=== PATIENT | female | born 1960 | race Caucasian/White ===

== ENCOUNTER 2016-07-02 16:48 | Emergency (ER) | payer MEDICARE, MEDICAID ==
[2016-07-02] MEDS ORDERED: SODIUM CHLORIDE 0.9% 1000ML 1,000 ML IVS ONE (17:37)
--- NOTE | 2016-07-02 18:41 | ED.PDOC ---
History of Present Illness - General Source: patient, RN notes reviewed, Vital Signs reviewed, family Exam Limitations: no limitations - History of Present Illness Initial Comments: Patient was walking around [employer] when she started to feel shaky and weak. She felt like when her blood sugar drops but she had just eaten lunch so did not think that was what was going on. Her [id number] reports she was sitting down and then had 2 brief syncopal episodes with diaphoresis. First thing patient remembers after syncopal episode was being moved onto stretcher by EMS. That was ~15 minutes after syncopal episode. Now she is feeling better just very fatigued and with a headache. Glucose checked by EMS was 310. Patient did not take her medications today. Timing/Duration: momentarily Severity: moderate Improving Factors: nothing Worsening Factors: nothing Associated Symptoms: diaphoresis, headaches, malaise, syncope, weakness <Caryl Francisco - Last Filed: 07/02/16 19:05> <Leticia Hess - Last Filed: 07/02/16 19:48> - General Chief Complaint: Neuro Symptoms/Deficits Stated Complaint: severe headache Time Seen by Provider: 07/02/16 17:36 - History of Present Illness Allergies/Adverse Reactions: Allergies Butorphanol [From Stadol] Allergy (Verified 05/15/12 11:06) Diazepam [From Valium] Allergy (Verified 05/15/12 11:06) Diphenhydramine [From Benadryl] Allergy (Verified 05/15/12 11:06) Meperidine [From Demerol HCl] Allergy (Verified 05/15/12 11:06) Penicillins Allergy (Verified 05/15/12 11:06) Phenobarbital Allergy (Verified 05/15/12 11:06) Review of Systems - Review of Systems Constitutional: States: diaphoresis, malaise, weakness. Denies: chills, fever EENTM: States: no symptoms reported Respiratory: States: no symptoms reported. Denies: cough, short of breath Cardiology: States: syncope. Denies: chest pain, edema, palpitations Gastrointestinal/Abdominal: States: no symptoms reported. Denies: abdominal pain, nausea Musculoskeletal: States: no symptoms reported. Denies: back pain, neck pain Skin: States: no symptoms reported Neurological: States: see HPI, headache. Denies: numbness, paresthesia, seizure , tingling, tremors Endocrine: States: excessive sweating <Caryl Francisco - Last Filed: 07/02/16 19:05> Past Medical History (General) - Patient Medical History Hx Seizures: No Hx Stroke: No Hx Dementia: No Hx Asthma: No Hx of COPD: No Hx Cardiac Disorders: No Hx Congestive Heart Failure: No Hx Pacemaker: No Hx Hypertension: Yes Hx Thyroid Disease: No Hx Diabetes: Yes - IDDM Hx Renal Disease: No Hx of HIV: No Hx MRSA: No Surgical History: appendectomy - Vaccination History Hx Influenza Vaccination: No Hx Pneumococcal Vaccination: No - Social History Hx Tobacco Use: No - Triage Comment ED Triage Comment: EMS states pt c/o severe headache. Upon arrival to ER pt states her ears are ringing and she does not feel good. she did have sharp pain in her head that is better. <Caryl Francisco - Last Filed: 07/02/16 19:05> Family Medical History - Family History Mother Family History: Unknown <Caryl Francisco - Last Filed: 07/02/16 19:05> Physical Exam - Physical Exam General Appearance: Alert, Comfortable, No apparent distress, Obese, Well Developed, Well Groomed, Well Nourished Eye Exam: bilateral normal Ears, Nose, Throat: other - Dry Neck: non-tender, full range of motion, supple, normal inspection Respiratory: chest non-tender, lungs clear, normal breath sounds, no respiratory distress, no accessory muscle use Cardiovascular/Chest: regular rate, rhythm, no edema, no gallop, no JVD, no murmur Gastrointestinal/Abdominal: normal bowel sounds, non tender, soft, no organomegaly Extremity: normal range of motion, non-tender, normal inspection Neurologic: chocolatier II-XII nml as tested, no motor/sensory deficits, alert, normal mood/affect, oriented x 3 Skin Exam: normal color, warm/dry <Caryl Francisco - Last Filed: 07/02/16 19:05> Progress - Progress Progress: 07/02/16 19:[address] Hess @ [id number] <Caryl Francisco - Last Filed: 07/02/16 19:05> - Progress Progress: 07/02/16 19:44 I question if Patient's symptoms are a result of seizure activity. I will discharge Patient with instructions to call 911 for any further symptoms. Additionally, Patient has an appointment with her PCP tomorrow, and I encourage a referral to neurology to have this worked up further. I have discussed this with Patient. She will be home with her father so she will not be alone tonight. - Results/Orders Results/Orders: 07/02/16 16:50 Temperature 98.3 F Pulse Rate [ 78 monitor] Respiratory 16 Rate Blood Pressure 171/92 [Left Arm] O2 Sat by Pulse 96 Oximetry 07/02/16 17:37 IV Care:Saline Lock per Protoc QSHIFT URINALYSIS Stat Laboratory Results WBC 8.3 K/mm3 (4.8-10.8) 07/02/16 17:45 RBC 4.83 M/mm3 (4.20-5.40) 07/02/16 17:45 Hgb 14.7 gm/dL (12.0-16.0) 07/02/16 17:45 Hct 43.1 % (36.0-47.0) 07/02/16 17:45 MCV 89.2 fl (81.0-99.0) 07/02/16 17:45 MCH 30.4 pg (27.0-31.0) 07/02/16 17:45 MCHC 34.1 g/dL (33.0-37.0) 07/02/16 17:45 RDW 13.3 % (11.5-14.5) 07/02/16 17:45 Plt Count 258 K/mm3 (130-400) 07/02/16 17:45 MPV 7.3 fl (7.40-10.4) L 07/02/16 17:45 Absolute Neuts (auto) 5.20 K/uL (1.8-6.8) 07/02/16 17:45 Absolute Lymphs (auto) 2.30 K/uL (1.0-3.4) 07/02/16 17:45 Absolute Monos (auto) 0.60 K/uL (0.2-0.8) 07/02/16 17:45 Absolute Eos (auto) 0.10 K/uL (0.0-0.4) 07/02/16 17:45 Absolute Basos (auto) 0.10 K/uL (0.0-0.1) 07/02/16 17:45 Neutrophils % 62.8 % (42.0-78.0) 07/02/16 17:45 Lymphocytes % 27.1 % (20.0-50.0) 07/02/16 17:45 Monocytes % 7.8 % (2.0-9.0) 07/02/16 17:45 Eosinophils % 1.3 % (1.0-5.0) 07/02/16 17:45 Basophils % 1.0 % (0.0-2.0) 07/02/16 17:45 Sodium 138 mmol/L (135-145) 07/02/16 17:45 Potassium 3.9 mmol/L (3.6-5.0) 07/02/16 17:45 Chloride 100 mmol/L (101-111) L 07/02/16 17:45 Carbon Dioxide 28 mmol/L (21-31) 07/02/16 17:45 Anion Gap 13.9 (12-18) 07/02/16 17:45 BUN 22 mg/dL (7-18) H 07/02/16 17:45 Creatinine 0.92 mg/dL (0.6-1.3) 07/02/16 17:45 BUN/Creatinine Ratio 23.9 (10-20) H 07/02/16 17:45 Random Glucose 297 mg/dL (70-105) H 07/02/16 17:45 Serum Osmolality 290.0 mOsm/L (275-295) 07/02/16 17:45 Calcium 9.3 mg/dL (8.4-10.2) 07/02/16 17:45 Total Bilirubin 0.5 mg/dL (0.2-1.0) 07/02/16 17:45 AST 26 IU/L (10-42) 07/02/16 17:45 ALT 29 IU/L (10-60) 07/02/16 17:45 Alkaline Phosphatase 131 IU/L (42-121) H 07/02/16 17:45 Serum Total Protein 7.4 gm/dL (6.4-8.2) 07/02/16 17:45 Albumin 3.9 g/dl (3.2-5.5) 07/02/16 17:45 Globulin 3.5 gm/dL (2.3-3.5) 07/02/16 17:45 Albumin/Globulin Ratio 1.1 (1.1-1.9) 07/02/16 17:45 <Leticia Hess - Last Filed: 07/02/16 19:48> Departure <Caryl Francisco - Last Filed: 07/02/16 19:05> - Departure Time of Disposition: 19:44 Diet: diabetic diet <Leticia Hess - Last Filed: 07/02/16 19:48> - Departure Clinical Impression: Syncope Qualifiers: Syncope type: unspecified Qualified Code(s): R55 - Syncope and collapse Disposition: Discharge to Home or Self Care Departure Forms: ED Discharge - Pt. Copy, Patient Portal Self Enrollment Instructions: [facility] for Syncope in Adults (Fainting) Referrals: ABHISHEK LAMB [Primary Care Provider] - 1-2 Days Additional Instructions: Keep appointment with PCP tomorrow. Call 911 for any further symptoms. Stay well-hydrated, keep sugars in check.
--- NOTE | 2016-07-02 19:09 | CT ---
EXAM DESCRIPTION: Head CLINICAL HISTORY: DAVISON after syncopal episode COMPARISON: None Available. TECHNIQUE: Contiguous axial images of the brain were obtained without the administration of intravenous contrast. This exam was performed according to our departmental dose-optimization program, which includes automated exposure control, adjustment of the mA and/or kV according to patient size and/or use of iterative reconstruction technique. FINDINGS: There is no acute intracranial hemorrhage or mass effect. Ventricular system is within normal limits. There is adequate ortega-white matter differentiation. There is no skull fracture. The visualized paranasal sinuses and mastoid air cells are within normal limits. IMPRESSION: No acute intracranial abnormalities. Electronically signed by: Mukul Dillon MD 07/02/2016 7:08 PM CDT
[2016-07-02 20:01] VITALS: BP 180/63; TEMP 98; O2SAT 85
== END 2016-07-02 20:02 | disposition home or self-care (01) ==
LOC: ER 16:48
DX: R55 Syncope and collapse (principal); R51 Headache; E11.9 Type 2 diabetes mellitus without complications; I10 Essential (primary) hypertension; Z88.0 Allergy status to penicillin; Z88.8 Allergy status to other drugs, medicaments and biological substances; Z79.899 Other long term (current) drug therapy

== ENCOUNTER 2018-01-11 13:13 | Emergency (ER) | payer MEDICAID, MEDICARE ==
[2018-01-11 13:26] VITALS: TEMP 99.2
--- NOTE | 2018-01-11 13:39 | ED.PDOC ---
History of Present Illness - General Chief Complaint: Headache Stated Complaint: headache and back pain Time Seen by Provider: 01/11/18 13:31 Source: patient Exam Limitations: no limitations - History of Present Illness Initial Comments: Yareli Causey 57 y/o female with history of DM2,,fibromyalgia ,neuropathy lower extremities and bipolar disorder stated has numbness and tingling sensation on left foot then involving her right foot then radiated up to her head with headache and tingling feeling and pinprick sensation on both upper extremities about 2 hours ago also with dull neck and low back pain while riding car with her father,She was brought by EMS.After finishing talking to her nurse came by and stated patients symptoms gone ,feeling better.Denies weakness,slurred speech.Then talked to her that I was about to order test and she stated that she no longer wants the test desires to go back home .Blood sugar taken [id number] Timing/Duration: 1-3 hours Severity: moderate Improving Factors: nothing Worsening Factors: nothing Associated Symptoms: other - see hpi Allergies/Adverse Reactions: Allergies Butorphanol [From Stadol] Allergy (Verified 05/15/12 11:06) Diazepam [From Valium] Allergy (Verified 05/15/12 11:06) Diphenhydramine [From Benadryl] Allergy (Verified 05/15/12 11:06) Meperidine [From Demerol HCl] Allergy (Verified 05/15/12 11:06) Penicillins Allergy (Verified 05/15/12 11:06) Phenobarbital Allergy (Verified 05/15/12 11:06) Review of Systems - Review of Systems Constitutional: States: no symptoms reported EENTM: States: no symptoms reported Respiratory: States: no symptoms reported Cardiology: States: no symptoms reported Gastrointestinal/Abdominal: States: no symptoms reported Genitourinary: States: no symptoms reported Musculoskeletal: States: no symptoms reported Neurological: States: tingling Endocrine: States: no symptoms reported Past Medical History (General) - Patient Medical History Hx Seizures: No Hx Stroke: No Hx Dementia: No Hx Asthma: No Hx of COPD: No Hx Cardiac Disorders: No Hx Congestive Heart Failure: No Hx Pacemaker: No Hx Hypertension: Yes Hx Thyroid Disease: No Hx Diabetes: Yes - IDDM Hx Renal Disease: No Hx of HIV: No Hx MRSA: No Surgical History: appendectomy - Vaccination History Hx Influenza Vaccination: No Hx Pneumococcal Vaccination: No - Social History Hx Tobacco Use: Yes Hx Physical Abuse: No Hx Emotional Abuse: No - Activities of Daily Living Grooming Ability: Independent Eating (Feeding) Ability: Independent Toileting Ability: Independent - Female History Patient is a Female of Child Bearing Age (10 -59 yrs old): No Family Medical History - Family History Mother Family History: Unknown Hx Family Diabetes: Yes - dad Hx Family Cancer: Yes - breast-mom Physical Exam - Physical Exam General Appearance: Alert, Comfortable, No apparent distress, Other - speech fluent Eye Exam: bilateral normal Ears, Nose, Throat: hearing grossly normal, normal ENT inspection, normal pharynx Neck: non-tender, full range of motion, supple, normal inspection Respiratory: chest non-tender, lungs clear, normal breath sounds, no respiratory distress Cardiovascular/Chest: normal peripheral pulses, regular rate, rhythm, no murmur Peripheral Pulses: radial,right: 2+, radial,left: 2+, dorsalis pedis,left: 2+, posterior tibialis,right: 2+ Gastrointestinal/Abdominal: normal bowel sounds, non tender, soft, no organomegaly Extremity: non-tender, normal inspection, no pedal edema, no calf tenderness Neurologic: no motor/sensory deficits, alert, oriented x 3, other - no pronator drift Skin Exam: normal color, warm/dry Progress - Progress Progress: 01/11/18 13:42 Vital Signs 01/11/18 13:15 Temperature 99.2 F Pulse Rate [ 73 left radial] Respiratory 16 Rate Blood Pressure 123/80 [left radial] O2 Sat by Pulse 95 Oximetry - Results/Orders Results/Orders: Patient declined to have any blood work/scan done felt better wanting to go home. Departure - Departure Clinical Impression: Numbness and tingling, Neck pain Headache Qualifiers: Headache type: unspecified Headache chronicity pattern: unspecified pattern Intractability: not intractable Qualified Code(s): R51 - Headache Low back pain Qualifiers: Chronicity: unspecified Back pain laterality: unspecified Sciatica presence: without sciatica Qualified Code(s): M54.5 - Low back pain Time of Disposition: 13:46 Disposition: Discharge to Home or Self Care Condition: Fair Departure Forms: ED Discharge - Pt. Copy, Patient Portal Self Enrollment Referrals: ABHISHEK LAMB [Primary Care Provider] - 1-2 Weeks Additional Instructions: Return to ER if symptoms worsens ;follow up with primary MD 12 January 2018; continue with all home medications
[2018-01-11 18:29] VITALS: BP 126/82; O2SAT 96
== END 2018-01-11 13:45 | disposition home or self-care (01) ==
LOC: ER 13:13
DX: M54.5 Low back pain (principal); R51 Headache; M54.2 Cervicalgia; R20.0 Anesthesia of skin; M79.7 Fibromyalgia; E11.40 Type 2 diabetes mellitus with diabetic neuropathy, unspecified; F31.9 Bipolar disorder, unspecified; I10 Essential (primary) hypertension; Z79.899 Other long term (current) drug therapy; Z87.891 Personal history of nicotine dependence; Z88.0 Allergy status to penicillin; Z88.8 Allergy status to other drugs, medicaments and biological substances